=== PATIENT | female | born 1980 | race Caucasian/White ===

== ENCOUNTER 2022-06-01 14:06 | Outpatient (CLI) | payer BC | END 2022-06-01 14:07 | disposition home or self-care (01) | LOC: CSHMAMMO 14:06 | PROVIDERS: ATTEND Obstetrics & Gynecology | DX: N63.20 Unspecified lump in the left breast, unspecified quadrant (principal); N60.02 Solitary cyst of left breast | CPT/HCPCS: 77066; G0279 ==

== ENCOUNTER → 2022-06-22 | Day surgery (SDC) | payer BC | LOC: CSHULT 11:23 | PROVIDERS: ATTEND Obstetrics & Gynecology | DX: N63.24 Unspecified lump in the left breast, lower inner quadrant (principal) | CPT/HCPCS: 76942; 88112; 88305 ==